=== PATIENT | male | born 1995 | race Caucasian/White ===

== ENCOUNTER 2018-11-15 23:13 | Emergency (ER) | payer MEDICAID, OTHER ==
[~2018-11-15] VITALS: Ht 177.8 cm; Wt 63.5 kg
[2018-11-15 23:27] VITALS: BP_SYST 125; BP_SYST 126; BP_SYST 129; BP_DIAS 80; BP_DIAS 85; BP_DIAS 86
[2018-11-15] MEDS ORDERED: LACTATED RINGERS 1,000 ML IV ONE (23:36)
[2018-11-15 23:45] LABS: BASOPHILS % (AUTO) 0 % (0-10); EOSINOPHILS # (AUTO) 0.1 10^3/uL (0.0-0.3); EOSINOPHILS % (AUTO) 0 % (0-10); HEMATOCRIT 45 % (40-54); HEMOGLOBIN 15.2 G/DL (13.3-17.7); LYMPHOCYTES # (AUTO) 1.6 X 10^3 (1.0-4.0); LYMPHOCYTES % (AUTO) 9 % (12-44); MEAN CORPUSCULAR HEMOGLOBIN 30 PG (25-34); MEAN CORPUSCULAR HGB CONC 34 G/DL (32-36); MEAN CORPUSCULAR VOLUME 88 FL (80-99); MEAN PLATELET VOLUME 9.5 FL (7.4-10.4); MONOCYTES % (AUTO) 6 % (0-12); NEUTROPHILS # (AUTO) 15.3 X 10^3 (1.8-7.8); NEUTROPHILS % (AUTO) 85 % (42-75); PLATELET COUNT 249 10^3/uL (130-400); RED CELL DISTRIBUTION WIDTH 13.9 % (10.0-14.5); WHITE BLOOD COUNT 17.9 10^3/uL (4.3-11.0)
[2018-11-16 00:07] LABS: ALANINE AMINOTRANSFERASE 21 U/L (0-55); ALBUMIN 4.9 GM/DL (3.2-4.5); ALKALINE PHOSPHATASE 80 U/L (40-136); BILIRUBIN,TOTAL 0.4 MG/DL (0.1-1.0); BUN/CREATININE RATIO 12; CARBON DIOXIDE 25 MMOL/L (21-32); CHLORIDE 100 MMOL/L (98-107); CREATINE KINASE 104 U/L (30-200); CREATININE SERUM 1.02 MG/DL (0.60-1.30); GFR ESTIMATED > 60; GLUCOSE 107 MG/DL (70-105); MAGNESIUM 2.2 MG/DL (1.8-2.4); POTASSIUM 3.7 MMOL/L (3.6-5.0); SODIUM 138 MMOL/L (135-145); TOTAL PROTEIN 7.6 GM/DL (6.4-8.2)
[2018-11-16 00:13] LABS: CREATINE KINASE MB 0.7 NG/ML (<6.6)
[2018-11-16 00:39] LABS: BILIRUBIN,URINE NEGATIVE (NEGATIVE); CLARITY,URINE CLEAR; COLOR,URINE YELLOW; GLUCOSE, URINE (UA) NEGATIVE (NEGATIVE); KETONES,URINE NEGATIVE (NEGATIVE); LEUKOCYTE ESTERASE ,URINE NEGATIVE (NEGATIVE); NITRITE,URINE NEGATIVE (NEGATIVE); PH,URINE 6 (5-9); PROTEIN,URINE NEGATIVE (NEGATIVE); UROBILINOGEN,URINE NORMAL (NORMAL)
[2018-11-16 00:51] LABS: AMPHETAMINE SCREEN, URINE NEGATIVE (NEGATIVE); BARBITURATE SCREEN URINE NEGATIVE (NEGATIVE); BENZODIAZEPINES SCREEN URINE NEGATIVE (NEGATIVE); CANNABINOID SCREEN, URINE NEGATIVE (NEGATIVE); COCAINE SCREEN URINE NEGATIVE (NEGATIVE); METHADONE STAT NEGATIVE (NEGATIVE); METHAMPHETAMINE SCREEN URINE S NEGATIVE (NEGATIVE); OPIATE SCREEN URINE NEGATIVE (NEGATIVE); OXYCODONE STAT NEGATIVE (NEGATIVE); PROPOXYPHENE STAT NEGATIVE (NEGATIVE); TRICYCLIC ANTIDEPRESSANTS SCRE NEGATIVE (NEGATIVE)
[2018-11-16 00:52] LABS: BACTERIA,URINE FEW /HPF; RBC,URINE 0-2 /HPF; SQUAMOUS EPITHELIAL CELL,UR RARE /HPF; WBC,URINE RARE /HPF
[2018-11-16 01:11] LABS: LYMPHOCYTES % (MANUAL) 7 %; MONOCYTES % (MANUAL) 6 %; NEUTROPHILS % (MANUAL) 87 %
[2018-11-16] MEDS ORDERED: LACTATED RINGERS 1,000 ML IV ONE (01:12)
[2018-11-16] MEDS ORDERED: ONDANSETRON 4 MG/2 ML (SDV) Z0FRAN IVP ONE (01:15)
[2018-11-16] MEDS ORDERED: ONDA4TAB11 PO (01:34)
--- NOTE | 2018-11-16 01:35 | ED General ---
General Chief Complaint: Exposure Stated Complaint: PASSED OUT AT WORK Nursing Triage Note: syncopal episode at work after vomitting. headache. Nursing Sepsis Screen: No Definite Risk Source of Information: Patient History of Present Illness Date Seen by Provider: Nov 15, 2018 Time Seen by Provider: 23:30 Initial Comments PT ARRIVES VIA POV FROM HOME PT STATES HE WAS AT WORK TONIGHT AT [facility] [employer] AND STARTED FEELING BAD, WENT OUTSIDE AND BEGAN TO VOMIT STATES HE WAS BENT OVER AND VOMITING HARD, AND HE PASSED OUT--WAS NOT WITNESSED, BUT WOKE UP TO CO-WORKERS STANDING BY HIM STATES HE DID NOT INJURE HIMSELF AND DOES NOT THINK HE HIT HIS HEAD STATES THIS OCCURRED AROUND 2100 TONIGHT. STATES [employer]WORKERS STAYED WITH HIM OUTSIDE FOR AN HOUR AND A HALF, AND THEN SENT HIM HOME--PT DROVE HIMSELF HOME PT STATES WHEN HE GOT HOME, HE TOLD HIS MOM WHAT HAPPENED, AND SHE TOLD HIM TO COME HERE PT STATES HE JUST FEELS "WORN OUT" NOW, WITH NO SPECIFIC COMPLAINTS STATES HE WAS WORKING NEAR AN OPEN DOOR AND IT WAS NOT TERRIBLY HOT TONIGHT, BUT HAS BEEN WORKING IN VERY HOT CONDITIONS AT WORK AND ALSO WORKED OUTSIDE ALL WEEKEND. PT STATES THIS HAS HAPPENED BEFORE. Allergies and Home Medications Allergies Coded Allergies: No Known Drug Allergies (Unverified , 11/15/18) Home Medications Ondansetron 4 Mg Tab.rapdis, 4 MG PO Q4H Prescribed by: VAMSHI RODRIGUEZ on 11/16/18 0134 Patient Home Medication List Home Medication List Reviewed: Yes Review of Systems Review of Systems Constitutional: see HPI; No fever; malaise, weakness EENTM: no symptoms reported Respiratory: no symptoms reported; No short of breath Cardiovascular: see HPI; No chest pain, No palpitations; syncope Gastrointestinal: see HPI; No abdominal pain, No diarrhea; nausea, vomiting Genitourinary: no symptoms reported; No decreased output Musculoskeletal: no symptoms reported; No back pain, No neck pain Skin: no symptoms reported Psychiatric/Neurological: See HPI (SYNCOPE); Denies Headache, Denies Numbness, Denies Paresthesia, Denies Seizure, Denies Tingling, Denies Weakness Hematologic/Lymphatic: No Symptoms Reported Immunological/Allergic: no symptoms reported Past Ecllxjq-Wbsyua-Xogery Hx Patient Social History Alcohol Use: Denies Use Recreational Drug Use: No Smoking Status: Current Everyday Smoker Type Used: Cigarettes 2nd Hand Smoke Exposure: Yes Recent Foreign Travel: No Contact w/Someone Who Travel: No Recent Infectious Disease Expo: No Recent Hopitalizations: No Immunizations Up To Date Tetanus Booster (TDap): Unknown Seasonal Allergies Seasonal Allergies: No Past Medical History Surgeries: No Respiratory: No Cardiac: No Neurological: No Genitourinary: No Gastrointestinal: No Musculoskeletal: No Endocrine: No HEENT: No Cancer: No Psychosocial: No Integumentary: No Blood Disorders: No Physical Exam Vital Signs Vital Signs - First Documented 11/15/18 23:27 Temp 97.3 Pulse 85 85 91 Resp 16 B/P (MAP) 125/85 (98) 126/86 (99) 129/80 (96) Pulse Ox 99 O2 Delivery Room Air Capillary Refill : Less Than 3 Seconds Height, Weight, BMI Height: 5'10.00" Weight: 140lbs. oz. 63.243934wk; BMI Method:Stated General Appearance: No Apparent Distress, WD/WN HEENT: PERRL/EOMI, Normal ENT Inspection Neck: Full Range of Motion, Normal Inspection, Non Tender, Supple Respiratory: Normal Breath Sounds, No Accessory Muscle Use, No Respiratory Distress Cardiovascular: Regular Rate, Rhythm, No Edema, No JVD, No Murmur, Normal Peripheral Pulses Gastrointestinal: Normal Bowel Sounds, No Organomegaly, No Pulsatile Mass, Soft, Tenderness (MILD EPIGASTRIC TENDERNESS) Back: Normal Inspection Extremity: Normal Inspection Neurologic/Psychiatric: Alert, Oriented x3, No Motor/Sensory Deficits, Normal Mood/Affect, 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 Norm as Tested; No Abnormal Cerebellar Tests Skin: Normal Color, Warm/Dry Progress/Results/Core Measures Suspected Sepsis Recent Fever Within 48 Hours: No Infection Criteria Present: None New/Unexplained Altered Menta: No Sepsis Screen: No Definite Risk SIRS Temperature:97.3 Pulse: 85 Respiratory Rate: 16 Laboratory Tests 11/15/18 23:35: White Blood Count 17.9H Blood Pressure 125 /85 Mean: 98 Laboratory Tests 11/15/18 23:35: Creatinine 1.02, Platelet Count 249, Total Bilirubin 0.4 Results/Orders Lab Results Laboratory Tests Test 11/15/18 23:35 11/16/18 00:35 Range/Units White Blood Count 17.9 H 4.3-11.0 10^3/uL Red Blood Count 5.10 4.35-5.85 10^6/uL Hemoglobin 15.2 13.3-17.7 G/DL Hematocrit 45 40-54 % Mean Corpuscular Volume 88 80-99 FL Mean Corpuscular Hemoglobin 30 25-34 PG Mean Corpuscular Hemoglobin Concent 34 32-36 G/DL Red Cell Distribution Width 13.9 10.0-14.5 % Platelet Count 249 130-400 10^3/uL Mean Platelet Volume 9.5 7.4-10.4 FL Neutrophils (%) (Auto) 85 H 42-75 % Lymphocytes (%) (Auto) 9 L 12-44 % Monocytes (%) (Auto) 6 0-12 % Eosinophils (%) (Auto) 0 0-10 % Basophils (%) (Auto) 0 0-10 % Neutrophils # (Auto) 15.3 H 1.8-7.8 X 10^3 Lymphocytes # (Auto) 1.6 1.0-4.0 X 10^3 Monocytes # (Auto) 1.0 0.0-1.0 X 10^3 Eosinophils # (Auto) 0.1 0.0-0.3 10^3/uL Basophils # (Auto) 0.0 0.0-0.1 10^3/uL Neutrophils % (Manual) 87 % Lymphocytes % (Manual) 7 % Monocytes % (Manual) 6 % Sodium Level 138 135-145 MMOL/L Potassium Level 3.7 3.6-5.0 MMOL/L Chloride Level 100 98-107 MMOL/L Carbon Dioxide Level 25 21-32 MMOL/L Anion Gap 13 5-14 MMOL/L Blood Urea Nitrogen 12 7-18 MG/DL Creatinine 1.02 0.60-1.30 MG/DL Estimat Glomerular Filtration Rate > 60 BUN/Creatinine Ratio 12 Glucose Level 107 H 70-105 MG/DL Calcium Level 10.0 8.5-10.1 MG/DL Corrected Calcium 8.5-10.1 MG/DL Magnesium Level 2.2 1.8-2.4 MG/DL Total Bilirubin 0.4 0.1-1.0 MG/DL Aspartate Amino Transf (AST/SGOT) 18 5-34 U/L Alanine Aminotransferase (ALT/SGPT) 21 0-55 U/L Alkaline Phosphatase 80 40-136 U/L Total Creatine Kinase 104 30-200 U/L Creatine Kinase MB 0.7 <6.6 NG/ML Troponin I < 0.028 <0.028 NG/ML Total Protein 7.6 6.4-8.2 GM/DL Albumin 4.9 H 3.2-4.5 GM/DL Serum Alcohol < 10 <10 MG/DL Urine Color YELLOW Urine Clarity CLEAR Urine pH 6 5-9 Urine Specific [place] 1.015 L 1.016-1.022 Urine Protein NEGATIVE NEGATIVE Urine Glucose (UA) NEGATIVE NEGATIVE Urine Ketones NEGATIVE NEGATIVE Urine Nitrite NEGATIVE NEGATIVE Urine Bilirubin NEGATIVE NEGATIVE Urine Urobilinogen NORMAL NORMAL MG/DL Urine Leukocyte Esterase NEGATIVE NEGATIVE Urine RBC (Auto) 1+ H NEGATIVE Urine RBC 0-2 /HPF Urine WBC RARE /HPF Urine Squamous Epithelial Cells RARE /HPF Urine Crystals NONE /LPF Urine Bacteria FEW H /HPF Urine Casts NONE /LPF Urine Mucus SMALL H /LPF Urine Culture Indicated NO Urine Opiates Screen NEGATIVE NEGATIVE Urine Oxycodone Screen NEGATIVE NEGATIVE Urine Methadone Screen NEGATIVE NEGATIVE Urine Propoxyphene Screen NEGATIVE NEGATIVE Urine Barbiturates Screen NEGATIVE NEGATIVE Ur Tricyclic Antidepressants Screen NEGATIVE NEGATIVE Urine Phencyclidine Screen NEGATIVE NEGATIVE Urine Amphetamines Screen NEGATIVE NEGATIVE Urine Methamphetamines Screen NEGATIVE NEGATIVE Urine Benzodiazepines Screen NEGATIVE NEGATIVE Urine Cocaine Screen NEGATIVE NEGATIVE Urine Cannabinoids Screen NEGATIVE NEGATIVE My Orders Orders - VAMSHI RODRIGUEZ DO Ed Iv/Invasive Line Start (11/15/18 23:36) Ekg Tracing (11/15/18 23:36) Monitor-Rhythm Ecg Trace Only (11/15/18 23:36) Orthostatic Vital Signs (Adult (11/15/18 23:36) Alcohol (11/15/18 23:36) Cbc With Automated Diff (11/15/18 23:36) Comprehensive Metabolic Panel (11/15/18 23:36) Creatine Kinase (11/15/18 23:36) Creatine Kinase Mb (11/15/18 23:36) Drug Screen Stat (Urine) (11/15/18 23:36) Magnesium (11/15/18 23:36) Ua Culture If Indicated (11/15/18 23:36) Troponin I (11/15/18 23:36) Ed Iv/Invasive Line Start (11/15/18 23:36) Ed Iv/Invasive Line Start (11/15/18 23:36) Lactated Ringers (Lr 1000 Ml Iv Solution (11/15/18 23:36) Manual Differential (11/15/18 23:35) Ed Iv/Invasive Line Start (11/16/18 01:12) Ondansetron Injection (Zofran Injectio (11/16/18 01:15) Lactated Ringers (Lr 1000 Ml Iv Solution (11/16/18 01:12) Medications Given in ED Current Medications Medications Dose Ordered Sig/Juan Route Start Time Stop Time Status Last Admin Dose Admin Lactated Ringer's 1,000 ml @ 0 mls/hr Q0M ONCE IV 11/15/18 23:36 11/15/18 23:38 DC 11/15/18 23:50 0 MLS/HR Lactated Ringer's 1,000 ml @ 0 mls/hr Q0M ONCE IV 11/16/18 01:12 11/16/18 01:13 DC 11/16/18 01:30 0 MLS/HR Ondansetron HCl 4 mg ONCE ONCE IVP 11/16/18 01:15 11/16/18 01:16 DC 11/16/18 01:30 4 MG Vital Signs/I&O 11/15/18 11/15/18 11/16/18 23:27 23:27 01:50 Temp 97.3 97.8 Pulse 85 85 73 85 91 Resp 16 16 B/P (MAP) 125/85 (98) 125/85 (98) 125/77 (93) 126/86 (99) 129/80 (96) Pulse Ox 99 100 O2 Delivery Room Air Room Air Capillary Refill : Less Than 3 Seconds Blood Pressure Mean: 98 Progress Note : Progress Note UNEVENTFUL ER STAY, SLEPT FOR MOST OF STAY NO COMPLAINTS DURING ENTIRE ER STAY ECG Initial ECG Impression Date: Nov 15, 2018 Initial ECG Impression Time: 23:42 Initial ECG Rate: 70 Initial ECG Rhythm: Normal Sinus Departure Impression Primary Impression: SELF REPORTED SYNCOPAL EPISODE Additional Impressions: Nausea & vomiting POSSIBLE VASOVAGAL SYNCOPE POSSIBLE HEAT EXHAUSTION Disposition: 01 HOME, SELF-CARE Condition: Improved Departure-Patient Inst. Patient Instructions: Heat Exhaustion and Heat Stroke (DC), Nausea and Vomiting, Adult (DC), Syncope (Fainting) (DC), Vasovagal Response (DC) Add. Discharge Instructions: LOTS OF CLEAR LIQUIDS--WATER, BROTH, JELLO, GATORADE--DRINK ENOUGH SO YOU ARE URINATING EVERY 2-3 HOURS WHILE AWAKE TOMORROW IF YOU ARE BETTER, ADD BRATS DIET TO CLEAR LIQUIDS--BANANAS, RICE, APPLESAUCE, TOAST, SALTINES FOLLOW UP WITH YOUR DR TOMORROW IF NO BETTER, RETURN TO ER IF WORSE All discharge instructions reviewed with patient and/or family. Voiced understanding. Scripts Ondansetron (Ondansetron Odt) 4 Mg Tab.rapdis 4 MG PO Q4H for Nausea/Vomiting, #10 TAB Prov: VAMSHI RODRIGUEZ DO 11/16/18 Work/School Note: Work Release Form Date Seen in the Emergency Department: Nov 15, 2018 Return to Work: Nov 17, 2018 Restrictions: No Restrictions VAMSHI RODRIGUEZ DO Nov 16, 2018 01:34
[2018-11-16 01:50] VITALS: BP 125/77
== END 2018-11-16 01:54 | disposition home or self-care (01) ==
LOC: ER 23:16
DX: R55 Syncope and collapse (principal); R11.2 Nausea with vomiting, unspecified; F17.210 Nicotine dependence, cigarettes, uncomplicated
CPT/HCPCS: 36415; 80053; 80306; 80320; 81000; 82550; 82553; 83735; 84484; 85007; 85027; 93005; 93041; 96361; 96374

== ENCOUNTER 2019-02-08 18:09 | Emergency (ER) | payer MEDICAID ==
[~2019-02-08] VITALS: Ht 180.3 cm; Wt 69.1 kg
[~2019-02-08 18:09] MED LIST: ONDA4TAB11 PO
--- NOTE | 2019-02-08 18:28 | ED Integumentary General ---
General Chief Complaint: Skin/Wound Problems Stated Complaint: RASH ALL OVER Source: patient Exam Limitations: no limitations History of Present Illness Date Seen by Provider: Feb 08, 2019 Time Seen by Provider: 18:26 Initial Comments To ER with reports of a rash all over starting today not really itchy. He's had a sore throat for the past 3 days but no fevers or chills. He's had a nonproductive cough for the past month. Timing/Duration: constant Severity: moderate Location: none Associated Symptoms: rash Allergies and Home Medications Allergies Coded Allergies: No Known Drug Allergies (Unverified , 11/15/18) Patient Home Medication List Home Medication List Reviewed: Yes Review of Systems Review of Systems Constitutional: see HPI; No chills, No fever EENTM: see HPI Respiratory: see HPI, cough Cardiovascular: no symptoms reported Musculoskeletal: no symptoms reported Skin: see HPI, rash Psychiatric/Neurological: No Symptoms Reported Endocrine: No Symptoms Reported Hematologic/Lymphatic: No Symptoms Reported Past Brmmdqd-Qvskfp-Wgbqfs Hx Patient Social History Type Used: Cigarettes 2nd Hand Smoke Exposure: Yes Recent Foreign Travel: No Contact w/Someone Who Travel: No Recent Hopitalizations: No Immunizations Up To Date Tetanus Booster (TDap): Unknown Seasonal Allergies Seasonal Allergies: No Past Medical History Surgeries: No Respiratory: No Cardiac: No Neurological: No Genitourinary: No Gastrointestinal: No Musculoskeletal: No Endocrine: No HEENT: No Cancer: No Psychosocial: No Integumentary: No Blood Disorders: No Physical Exam Vital Signs Vital Signs - First Documented 02/08/19 18:13 Temp 36.7 Pulse 92 Resp 18 B/P (MAP) 128/90 (103) Pulse Ox 98 Capillary Refill : General Appearance: WD/WN, no apparent distress HEENT: PERRL/EOMI, normal ENT inspection Respiratory: no respiratory distress, no accessory muscle use Extremities: normal range of motion, non-tender Neurologic/Psychiatric: alert, normal mood/affect, oriented x 3 Skin: normal color, warm/dry, rash Skin Problem Character: other (sandpaperlike rash to torso) Progress/Results/Core Measures Results/Orders Lab Results Laboratory Tests Test 02/08/19 18:25 Range/Units Group A Streptococcus Screen NEGATIVE NEGATIVE My Orders Orders - KASSANDRA BARRON APRN Rapid Strep A Screen (02/08/19 18:29) Chest Pa/Lat (2 View) (02/08/19 18:29) Vital Signs/I&O 02/08/19 18:13 Temp 36.7 Pulse 92 Resp 18 B/P (MAP) 128/90 (103) Pulse Ox 98 Departure Impression Primary Impression: Sore throat Additional Impressions: Rash and nonspecific skin eruption Bronchitis Disposition: HOME, SELF-CARE Condition: Stable Departure-Patient Inst. Decision time for Depature: 18:59 Referrals: NO,LOCAL PHYSICIAN (PCP/Family) Primary Care Physician Patient Instructions: Skin Rash, Acute Bronchitis Add. Discharge Instructions: 1. Return to ER for any concerns 2. Follow-up with your doctor next week 3. Steroids and antibiotics as directed. All discharge instructions reviewed with patient and/or family. Voiced understanding. Scripts Azithromycin (Azithromycin) 250 Mg Tablet 250 MG PO UD, #6 TAB TAKE 2 TABLETS ON DAY ONE THEN TAKE 1 TABLET DAILY FOR FOUR MORE DAYS Prov: KASSANDRA BARRON APRN 02/08/19 Prednisone (Prednisone) 20 Mg Tab 40 MG PO DAILY, #8 TAB 0 Refills Prov: KASSANDRA BARRON APRN 02/08/19 KASSANDRA BARRON APRN Feb 08, 2019 18:28
--- NOTE | 2019-02-08 18:54 | NUR ---
REPORT TO SHYANN
--- NOTE | 2019-02-08 18:57 | Diagnostic Imaging Report ---
INDICATION: Cough COMPARISON: None. FINDINGS: Frontal and lateral views the chest demonstrate clear lungs bilaterally. The heart size is normal. There is no pneumothorax. Osseous structures are normal. IMPRESSION: No acute findings. Normal chest. Dictated by: Dictated on workstation # [id number]
[2019-02-08] MEDS ORDERED: AZIT250T12 PO (19:00)
[2019-02-08] MEDS ORDERED: PRD20T PO (19:00)
[2019-02-08 19:06] VITALS: BP 128/90
== END 2019-02-08 19:06 | disposition home or self-care (01) ==
LOC: EDUNIT# 18:09 → ER 18:10
DX: J02.9 Acute pharyngitis, unspecified (principal); J40 Bronchitis, not specified as acute or chronic; R21 Rash and other nonspecific skin eruption; Z77.22 Contact with and (suspected) exposure to environmental tobacco smoke (acute) (chronic)
CPT/HCPCS: 71046; 87430

== ENCOUNTER 2019-07-24 21:35 | Emergency (ER) | payer MEDICAID ==
[~2019-07-24] VITALS: Ht 177 cm; Wt 69.1 kg
[~2019-07-24 21:35] MED LIST changes: +AZIT250T12 PO; +PRD20T PO
--- OUTSIDE RECORDS SUMMARY | 2019-07-24 21:40 | XMS REPORT | Continuity of Care Document ---
Author Organization Unknown Address Unknown Phone Unavailable Allergies Active Description Code Type Severity Reaction Onset Reported/Identified Relationship to Patient Clinical Status Yes No Known Drug Allergies [id number] Drug Allergy Unknown N/A 11/15/2018 Medications There is no data. Problems Date Dx Coded Attending Type Code Diagnosis Diagnosed By 11/16/2018 JENNIFER DO VAMSHI K Ot F17.210 NICOTINE DEPENDENCE, CIGARETTES, UNCOMPL 11/16/2018 JENNIFER DO, VAMSHI K Ot R11.2 NAUSEA WITH VOMITING, UNSPECIFIED 11/16/2018 JENNIFER DO, VAMSHI K Ot R55 SYNCOPE AND COLLAPSE 11/22/2018 JENNIFER DO, VAMSHI K Ot F17.210 NICOTINE DEPENDENCE, CIGARETTES, UNCOMPL 11/22/2018 JENNIFER DO, VAMSHI K Ot R11.2 NAUSEA WITH VOMITING, UNSPECIFIED 11/22/2018 JENNIFER DO, VAMSHI K Ot R55 SYNCOPE AND COLLAPSE 02/13/2019 KASSANDRA BARRON APRN Ot J02 .9 ACUTE PHARYNGITIS, UNSPECIFIED 02/13/2019 KASSANDRA BARRON APRN Ot J40 BRONCHITIS, NOT SPECIFIED ACUTE OR CH 02/13/2019 KASSANDRA BARRON APRN Ot R21 RASH AND OTHER NONSPECIFIC SKIN ERUPTION 02/13/2019 KASSANDRA BARRON APRN Ot Z77.22 CNTCT W AND EXPSR TO ENVIRON TOBACCO SMO Procedures There is no data. Results Test Result Range Complete blood count (CBC) with automate d white blood cell (WBC) differential - 11/15/18 23:35 Blood leukocytes automated count (number/volume) 17.9 10*3/uL 4.3-11.0 Blood erythrocytes automated count (number/volume) 5.10 10*6/uL 4.35-5.85 Venous blood hemoglobin measurement (mass/volume) 15.2 g/dL 13.3-17.7 Blood hematocrit (volume fraction) 45 % 40-54 Automated erythrocyte mean corpuscular volume 88 [ foz_us] 80-99 Automated erythrocyte mean corpuscular h emoglobin (mass per erythrocyte) 30 pg 25-34 Automated erythrocyte mean corpuscular h emoglobin concentration measurement (mass/volume) 34 g/dL 32-36 Automated erythrocyte distribution width ratio 13. 9 % 10.0- 14.5 Automated blood platelet count (count/volume) 249 10*3/uL 130-400 Automated blood platelet mean volume measurement 9.5 [foz_us] 7.4-10.4 Automated blood neutrophils/100 leukocytes 85 % 42-75 Automated blood lymphocytes/100 leukocytes 9 % 12-44 Blood monocytes/100 leukocytes 6 % 0-12 Automated blood eosinophils/100 leukocytes 0 % 0-10 Automated blood basophils/100 leukocytes 0 % 0-10 Blood neutrophils automated count (number/volume) 15.3 10*3 1.8-7.8 Blood lymphocytes automated count (number/volume) 1.6 10*3 1.0-4.0 Blood monocytes automated count (number/volume) 1. 0 10*3 0.0-1.0 Automated eosinophil count 0.1 10*3/uL 0 .0-0.3 Automated blood basophil count (count/volume) 0.0 10*3/uL 0.0-0.1 Comprehensive metabolic panel - 11/15/18 23:35 Serum or plasma sodium measurement (moles/volume) 138 mmol/L 135-145 Serum or plasma potassium measurement (moles/volume) 3.7 mmol/L 3.6-5.0 Serum or plasma chloride measurement (moles/volume) 100 mmol/L 98-107 Carbon dioxide 25 mmol/L 21-32 Serum or plasma anion gap determination (moles/volume) 13 mmol/L 5-14 Serum or plasma urea nitrogen measurement (mass/volume ) 12 mg/dL 7-18 Serum or plasma creatinine measurement (mass/volume) 1.02 mg/dL 0.60-1.30 Serum or plasma urea nitrogen/creatinine mass ratio 12 NRG Serum or plasma creatinine measurement w ith calculation of estimated glomerular filtration rate > NRG Serum or plasma glucose measurement (mass/volume) 107 mg/dL 70-105 Serum or plasma calcium measurement (mass/volume) 10.0 mg/dL 8.5-10.1 Serum or plasma total bilirubin measurement (mass/volu me) 0.4 mg/dL 0.1-1.0 Serum or plasma alkaline phosphatase tai surement (enzymatic activity/volume) 80 U/L 40-136 Serum or plasma aspartate aminotransfera se measurement (enzymatic activity/volume) 18 U/L 5-34 Serum or plasma alanine aminotransferase measurement (enzymatic activity/volume) 21 U/L 0-55 Serum or plasma protein measurement (mass/volume) 7.6 g/dL 6.4-8.2 Serum or plasma albumin measurement (mass/volume) 4.9 g/dL 3.2-4.5 Magnesium - 11/15/18 23:35 Magnesium 2.2 mg/dL 1.8-2.4 Serum or plasma creatine kinase measurem ent (enzymatic activity/volume) - 11/15/18 23:35 Serum or plasma creatine kinase measurem ent (enzymatic activity/volume) 104 U/L 30-200 Serum or plasma creatine kinase MB measu rement (enzymatic activity/volume) - 11/15/18 23:35 Serum or plasma creatine kinase MB measu rement (enzymatic activity/volume) 0.7 ng/mL <6.6 Serum or plasma troponin i.cardiac measu rement (mass/volume) - 11/15/18 23:35 Serum or plasma troponin i.cardiac measurement (mass/v olume) < ng/mL <0.028 Serum or plasma ethanol measurement (mas s/volume) - 11/15/18 23:35 Serum or plasma ethanol measurement (mass/volume) < mg/dL <10 Manual absolute plasma cell count - 10/25 07/12 23:35 Blood monocytes/100 leukocytes 6 % NRG Manual blood segmented neutrophils/100 leukocytes 87 % NRG Manual blood lymphocytes/100 leukocytes 7 % NRG Urine drug screening test - 11/16/18 00: 35 Urine phencyclidine detection by screening method NEGATIVE NEGATIVE Urine benzodiazepines detection by screening method NEGATIVE NEGATIVE Urine cocaine detection NEGATIVE NEGATI VE Urine amphetamines detection by screening method N EGATIVE NEGATIVE Urine methamphetamine detection by screening method NEGATIVE NEGATIVE Urine cannabinoids detection by screening method N EGATIVE NEGATIVE Urine opiates detection by screening method NEGATI VE NEGATIVE Urine barbiturates detection NEGATIVE N EGATIVE Screening urine tricyclic antidepressants detection NEGATIVE NEGATIVE Urine methadone detection by screening method NEGA TIVE NEGATIVE Urine oxycodone detection NEGATIVE NEGA TIVE Urine propoxyphene detection NEGATIVE N EGATIVE Complete urinalysis with reflex to cultu re - 07/24/19 00:35 Urine color determination YELLOW NRG Urine clarity determination CLEAR NR G Urine pH measurement by test strip 6 5-9 Specific gravity of urine by test strip 1.015 1.016-1.022 Urine protein assay by test strip, semi-quantitative NEGATIVE NEGATIVE Urine glucose detection by automated test strip NE GATIVE NEGATIVE Erythrocytes detection in urine sediment by light micr oscopy 1+ NEGATIVE Urine ketones detection by automated test strip NE GATIVE NEGATIVE Urine nitrite detection by test strip NEGATIVE NEGATIVE Urine total bilirubin detection by test strip NEGA TIVE NEGATIVE Urine urobilinogen measurement by automated test strip (mass/volume) NORMAL NORMAL Urine leukocyte esterase detection by dipstick NEG ATIVE NEGATIVE Automated urine sediment erythrocyte cou nt by microscopy (number/high power field) [HPF] NRG Automated urine sediment leukocyte count by microscopy (number/high power field) RARE NRG Bacteria detection in urine sediment by light microsco py FEW NRG Squamous epithelial cells detection in u rine sediment by light microscopy RARE NRG Crystals detection in urine sediment by light microsco py NONE NRG Casts detection in urine sediment by light microscopy NONE NRG Mucus detection in urine sediment by light microscopy SMALL NRG Complete urinalysis with reflex to culture NO NRG Streptococcus pyogenes antigen detection - 02/08/19 18:25 Streptococcus pyogenes antigen detection NEGATIVE NEGATIVE Bacterial throat culture - 02/08/19 18:2 5 Bacterial throat culture NBS NRG Encounters ACCT No. Visit Date/Time Discharge Status Pt. Type Provider Facility Loc./Unit Complaint [id number] 02/08/2019 18:10:00 19:06:00 DIS Outpatient KASSANDRA BARRON [employer] [facility] ER RASH ALL OVER [id number] 11/15/2018 23:16:00 01:54:00 DIS Emergency JENNIFER DOVAMSHI a [facility] ER PASSED OUT
[2019-07-24] MEDS ORDERED: NS IV 1000 ML 1,000 ML ONE (21:54)
[2019-07-24] MEDS ORDERED: NS IV 1000 ML 1,000 ML IV SCH (22:15)
[2019-07-24 22:16] LABS: BASOPHILS % (AUTO) 0 % (0-10); EOSINOPHILS # (AUTO) 0.1 10^3/uL (0.0-0.3); EOSINOPHILS % (AUTO) 1 % (0-10); HEMATOCRIT 46 % (40-54); LYMPHOCYTES # (AUTO) 2.1 X 10^3 (1.0-4.0); LYMPHOCYTES % (AUTO) 19 % (12-44); MEAN CORPUSCULAR HEMOGLOBIN 31 PG (25-34); MEAN CORPUSCULAR HGB CONC 35 G/DL (32-36); MEAN CORPUSCULAR VOLUME 89 FL (80-99); MEAN PLATELET VOLUME 10.1 FL (7.4-10.4); MONOCYTES # (AUTO) 0.8 X 10^3 (0.0-1.0); MONOCYTES % (AUTO) 7 % (0-12); NEUTROPHILS % (AUTO) 73 % (42-75); PLATELET COUNT 263 10^3/uL (130-400); RED CELL DISTRIBUTION WIDTH 13.3 % (10.0-14.5)
[2019-07-24 22:33] LABS: ALANINE AMINOTRANSFERASE 21 U/L (0-55); ALBUMIN 4.7 GM/DL (3.2-4.5); ALKALINE PHOSPHATASE 101 U/L (40-136); BILIRUBIN,TOTAL 0.4 MG/DL (0.1-1.0); BUN/CREATININE RATIO 10; CALCIUM 9.5 MG/DL (8.5-10.1); CARBON DIOXIDE 25 MMOL/L (21-32); CHLORIDE 103 MMOL/L (98-107); CREATININE SERUM 1.15 MG/DL (0.60-1.30); GFR ESTIMATED > 60; GLUCOSE 102 MG/DL (70-105); MAGNESIUM 2.1 MG/DL (1.6-2.4); POTASSIUM 3.7 MMOL/L (3.6-5.0); SODIUM 140 MMOL/L (135-145); TOTAL PROTEIN 7.7 GM/DL (6.4-8.2)
[2019-07-24 22:36] LABS: ERYTHROCYTE SEDIMENTATION RATE 4 MM/HR (0-15)
--- NOTE | 2019-07-24 22:37 | ED Cough/URI ---
General Chief Complaint: Cough/Cold/Flu Symptoms Stated Complaint: SOB,COUGH Nursing Triage Note: PT PRESENTS TO THE ED C/O SOB AND COUGH THAT HAS PERSISTED FOR ONE MONTH. PT STATES OVER THE LAST WEEK HIS SYMPTOMS HAVE WORSENED, DENIES KNOWN EXPOSURE TO POSSIBLE COVID. Sepsis Screen: Possible Severe Sepsis Risk Source: patient History of Present Illness Date Seen by Provider: Jul 24, 2019 Time Seen by Provider: 22:10 Initial Comments PT ARRIVES VIA POV FROM HOME STATES THAT HE HAS BEEN SICK FOR A MONTH WITH NON-PRODUCTIVE COUGH C/O HEADACHES FOR A WEEK OR TWO STATES "IT'S HARD TO BREATHE-LIKE SOMEONE SITTING ON MY CHEST" --WORSE WITH LAYING DOWN OR WITH EXERTION-STATES "IT FEELS LIKE I'VE BEEN RUNNING" --ALSO ONGOING FOR A MONTH NO FEVER AT ANY GARTH NO CHEST PAIN NO SWELLING IN LEGS/ FEET NO DIZZINESS OR SYNCOPE NO PALPITATIONS. NO SORE THROAT NO NASAL CONGESTION OR DRAINAGE NO BODY ACHES NO GI SYMPTOMS HAS NOT SOUGHT CARE UNTIL TONIGHT SYMPTOMS NO DIFFERENT IN ANY WAY HAS NOT TAKEN ANYTHING FOR SYMPTOMS OTHER THAN A COUPLE OF IBUPROFEN OVER THE LAST COUPLE OF WEEKS STATES HIS 2 DAUGHTERS TESTED + FOR INFLUENZA B A COUPLE OF WEEKS AGO OTHERWISE NO KNOWN SICK CONTACTS NO KNOWN EXPOSURE TO COVID- PT HAS NOT STAYED HOME, AND HAS CONTINUED NORMAL ACTIVITIES, DESPITE THE COVID PANDEMIC--STATES "I BEEN [facility] [employer] [facility] TIMES[facility] [employer] STATES HE WORKED LAST WEDNESDAY--WORKS AT "[employer]" --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[employer] STATES HE WAS SUPPOSED TO GO TO WORK TONIGHT, BUT DID NOT--STATES "I JUST DON'T FEEL SAFE GOING TO WORK" NO HISTORY OF RESPIRATORY PROBLEMS PT SMOKES 1 PPD PCP: [facility] Allergies and Home Medications Allergies Coded Allergies: No Known Drug Allergies (Unverified , 11/15/18) Home Medications Azithromycin 250 Mg Tablet, 250 MG PO UD TAKE 2 TABLETS ON DAY ONE THEN TAKE 1 TABLET DAILY FOR FOUR MORE DAYS Prescribed by: KASSANDRA BARRON on 02/08/191899 Prednisone 20 Mg Tab, 40 MG PO DAILY Prescribed by: KASSANDRA BARRON on 02/08/191899 Patient Home Medication List Home Medication List Reviewed: Yes Review of Systems Review of Systems Constitutional: no symptoms reported; No chills, No diaphoresis, No dizziness, No fever, No malaise, No weakness EENTM: no symptoms reported; No ear pain, No nose congestion, No throat pain Respiratory: see HPI, cough, dyspnea on exertion; No phlegm, No wheezing Cardiovascular: no symptoms reported; No chest pain, No edema, No palpitations, No syncope, No vascular heart diseas Gastrointestinal: no symptoms reported Genitourinary: no symptoms reported Musculoskeletal: no symptoms reported; No back pain Skin: no symptoms reported Psychiatric/Neurological: No Symptoms Reported Hematologic/Lymphatic: No Symptoms Reported Immunological/Allergic: no symptoms reported Past Dkrnzxh-Wlhmpu-Ddgodp Hx Past Med/Social Hx: Reviewed and Corrections made Patient Social History Alcohol Use: Occasionally Uses Recreational Drug Use: No Smoking Status: Current Everyday Smoker (1 PPD) Type Used: Cigarettes (1 PPD) 2nd Hand Smoke Exposure: Yes Recent Foreign Travel: No Contact w/Someone Who Travel: No Recent Infectious Disease Expo: No Recent Hopitalizations: No Physical Abuse: No Sexual Abuse: No Mistreated: No Fear: No Immunizations Up To Date Tetanus Booster (TDap): Unknown Seasonal Allergies Seasonal Allergies: No Past Medical History Surgeries: No Respiratory: No Cardiac: No Neurological: No Genitourinary: No Gastrointestinal: No Musculoskeletal: No Endocrine: No HEENT: No Cancer: No Psychosocial: No Integumentary: No Blood Disorders: No Physical Exam Vital Signs - First Documented 07/24/19 21:50 Temp 37.1 Pulse 116 Resp 22 B/P (MAP) 150/89 (109) Pulse Ox 100 O2 Delivery Room Air Capillary Refill : Less Than 3 Seconds Height: 5'10.00" Weight: 140lbs. oz. 63.615626do; 22.00 BMI Method:Stated General Appearance: WD/WN, no apparent distress, other (NO COUGH OR DYSPNEA AT ANY TIME. DOES NOT APPEAR ILL IN ANY WAY. O2 SATS 998-100% ON ROOM AIR. 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 nml as tested, no motor/sensory deficits, alert, normal mood/affect, oriented x 3 Skin: normal color, warm/dry Progress/Results/Core Measures Suspected Sepsis Recent Fever Within 48 Hours: Yes Infection Criteria Present: Suspected New Infection New/Unexplained Altered Menta: No Sepsis Screen: Possible Severe Sepsis Risk SIRS Temperature: Pulse: 116 Respiratory Rate: 22 Laboratory Tests 07/24/19 21:55: White Blood Count 11.0 Blood Pressure 150 /89 Mean: 109 Laboratory Tests 07/24/19 21:55: Creatinine 1.15, Platelet Count 263, Total Bilirubin 0.4 Results/Orders Lab Results Laboratory Tests Test 07/24/19 21:54 07/24/19 21:55 Range/Units Group A Streptococcus Screen NEGATIVE NEGATIVE White Blood Count 11.0 4.3-11.0 10^3/uL Red Blood Count 5.17 4.35-5.85 10^6/uL Hemoglobin 16.0 13.3-17.7 G/DL Hematocrit 46 40-54 % Mean Corpuscular Volume 89 80-99 FL Mean Corpuscular Hemoglobin 31 25-34 PG Mean Corpuscular Hemoglobin Concent 35 32-36 G/DL Red Cell Distribution Width 13.3 10.0-14.5 % Platelet Count 263 130-400 10^3/uL Mean Platelet Volume 10.1 7.4-10.4 FL Neutrophils (%) (Auto) 73 42-75 % Lymphocytes (%) (Auto) 19 12-44 % Monocytes (%) (Auto) 7 0-12 % Eosinophils (%) (Auto) 1 0-10 % Basophils (%) (Auto) 0 0-10 % Neutrophils # (Auto) 8.0 H 1.8-7.8 X 10^3 Lymphocytes # (Auto) 2.1 1.0-4.0 X 10^3 Monocytes # (Auto) 0.8 0.0-1.0 X 10^3 Eosinophils # (Auto) 0.1 0.0-0.3 10^3/uL Basophils # (Auto) 0.0 0.0-0.1 10^3/uL Erythrocyte Sedimentation Rate 4 0-15 MM/HR D-Dimer 0.35 0.00-0.49 UG/ML Sodium Level 140 135-145 MMOL/L Potassium Level 3.7 3.6-5.0 MMOL/L Chloride Level 103 98-107 MMOL/L Carbon Dioxide Level 25 21-32 MMOL/L Anion Gap 12 5-14 MMOL/L Blood Urea Nitrogen 12 7-18 MG/DL Creatinine 1.15 0.60-1.30 MG/DL Estimat Glomerular Filtration Rate > 60 BUN/Creatinine Ratio 10 Glucose Level 102 70-105 MG/DL Calcium Level 9.5 8.5-10.1 MG/DL Corrected Calcium 8.5-10.1 MG/DL Magnesium Level 2.1 1.6-2.4 MG/DL Total Bilirubin 0.4 0.1-1.0 MG/DL Aspartate Amino Transf (AST/SGOT) 17 5-34 U/L Alanine Aminotransferase (ALT/SGPT) 21 0-55 U/L Alkaline Phosphatase 101 40-136 U/L Lactate Dehydrogenase 205 125-220 U/L C-Reactive Protein High Sensitivity 0.68 H 0.00-0.50 MG/DL Total Protein 7.7 6.4-8.2 GM/DL Albumin 4.7 H 3.2-4.5 GM/DL Procalcitonin 0.05 <0.10 NG/ML Monoscreen NEGATIVE NEGATIVE Micro Results Microbiology 07/24/19 Influenza Types A,B Antigen (DERRICK) - Final, Complete My Orders Orders - VAMSHI RODRIGUEZ DO Ns Iv 1000 Ml (Sodium Chloride 0.9%) (07/24/19 21:54) Ns Iv 1000 Ml (Sodium Chloride 0.9%) (07/24/19 22:15) Ed Iv/Invasive Line Start (07/24/19 22:05) Monitor-Rhythm Ecg Trace Only (07/24/19 22:05) Cbc With Automated Diff (07/24/19 22:05) Comprehensive Metabolic Panel (07/24/19 22:05) Magnesium (07/24/19 22:05) Monotest (07/24/19 22:05) Rapid Strep A Screen (07/24/19 22:05) Influenza A And B Antigens (07/24/19 22:05) Chest 1 View, Ap/Pa Only (07/24/19 22:05) Ferritin (07/24/19 22:05) Fibrin Degradation Products (07/24/19 22:05) Procalcitonin (Pct) (07/24/19 22:05) Hs C Reactive Protein (07/24/19 22:05) Erythrocyte Sedimentation Rate (07/24/19 22:05) LDH (07/24/19 22:05) Ed Iv/Invasive Line Start (07/24/19 22:05) Vital Signs/I&O 07/24/19 07/24/19 21:50 23:00 Temp 37.1 37.0 Pulse 116 75 Resp 22 18 B/P (MAP) 150/89 (109) 137/74 (109) Pulse Ox 100 98 O2 Delivery Room Air Room Air 07/25/19 00:00 Intake Total 1000 ml Balance 1000 ml Capillary Refill : Less Than 3 Seconds Blood Pressure Mean: 109 Progress Note : Progress Note COMPLETELY ASYMPTOMATIC DURING ENTIRE ER STAY NO COUGH OR DYSPNEA OR HYPOXIA AT ANY TIME NO FEVER AT ANY TIME PT DOES NOT MEET CURRENT CRITERIA FOR COVID-19 TESTING, NO FEVER, NO RESPIRATORY DISTRESS ( WITH NO OBSERVED COUGH OR DYSPNEA NOTED AY ANY TIME DURING ER STAY ) Diagnostic Imaging Comments CXR--NO ACUTE PROCESS, PENDING RADIOLOGIST REVIEW Reviewed: Reviewed by Me Departure Impression Primary Impression: SUBJECTIVE DYSPNEA Disposition: 01 HOME, SELF-CARE Condition: Stable Departure-Patient Inst. Referrals: NO,LOCAL PHYSICIAN (PCP/Family) Primary Care Physician Patient Instructions: Cough, Runny Nose, and the Common Cold (DC) Add. Discharge Instructions: LOTS OF CLEAR LIQUIDS TYLENOL NEEDED FOR PAIN OR FEVER OVER THE COUNTER MEDICATIONS FOR COUGH AND CONGESTION FOLLOW UP WITH [facility] IN 4-5 DAYS IF NO BETTER All discharge instructions reviewed with patient and/or family. Voiced understanding. VAMSHI RODRIGUEZ DO Jul 24, 2019 22:37
[2019-07-24 23:00] VITALS: BP 137/74
--- NOTE | 2019-07-25 07:03 | Diagnostic Imaging Report ---
INDICATION: Cough and congestion COMPARISON: 02/08/2019 TECHNIQUE: Single radiograph the chest dated 07/24/2019. FINDINGS: The cardiac silhouette and pulmonary vasculature are within normal limits. The lungs are clear. No pleural effusion. No pneumothorax. No acute osseous abnormality. IMPRESSION: No acute cardiopulmonary abnormality. Dictated by: Dictated on workstation # [id number]
== END 2019-07-24 23:00 | disposition home or self-care (01) ==
LOC: EDUNIT# 21:35 → ER 21:37
DX: R06.09 Other forms of dyspnea (principal); R05 Cough; F17.210 Nicotine dependence, cigarettes, uncomplicated
CPT/HCPCS: 36415; 71045; 80053; 82728; 83615; 83735; 84145; 85025; 85379; 85652; 86141; 86308; 87430; 87804

== ENCOUNTER 2020-11-09 11:43 | Emergency (ER) | payer MEDICAID ==
[~2020-11-09] VITALS: Ht 177 cm; Wt 75.0 kg
[2020-11-09] MEDS ORDERED: [UNRECOGNIZED DRUG - CODE] RC (13:51)
[2020-11-09] MEDS ORDERED: DOCU-143 PO (13:51)
[2020-11-09] MEDS ORDERED: ACHD5005 PO (13:51)
[2020-11-09] MEDS ORDERED: PSYL0.525 PO (13:51)
--- NOTE | 2020-11-09 13:52 | ED GI ---
General Chief Complaint: Rect Problems Stated Complaint: RECTAL PAIN Source of Information: Patient Exam Limitations: No Limitations History of Present Illness Date Seen by Provider: Nov 09, 2020 Time Seen by Provider: 13:46 Initial Comments To ER with a large right sided hemorrhoid onset a few hours ago. He has had a history of hemorrhoids off and on but they usually go away with conservative treatment including witch melissa and warm soaks. Timing/Duration: 1-2 Days Severity/Quality: Moderate Radiation: No Radiation Activities at Onset: None Associated Symptoms: Denies Symptoms Allergies and Home Medications Allergies Coded Allergies: No Known Drug Allergies (Unverified , 11/15/18) Home Medications Azithromycin 250 Mg Tablet, 250 MG PO UD TAKE 2 TABLETS ON DAY ONE THEN TAKE 1 TABLET DAILY FOR FOUR MORE DAYS Prescribed by: KASSANDRA BARRON on 02/08/19 190 Docusate Sodium 100 Mg Capsule, 100 MG PO BID Prescribed by: KASSANDRA BARRON on 11/09/20 135 Hydrocodone/Acetaminophen 1 Each Tablet, 1 TAB PO Q4H PRN for PAIN-SEVERE (8-10) Prescribed by: KASSANDRA BARRON on 11/09/20 135 Hydrocortisone/Lidocaine/Aloe 100 Gm Gel.w.appl, 2 GM RC TID Prescribed by: KASSANDRA BARRON on 11/09/20 135 Prednisone 20 Mg Tab, 40 MG PO DAILY Prescribed by: KASSANDRA BARRON on 02/08/19 1900 Psyllium Husk 0.52 Gm Capsule, 0.52 GM PO BID Prescribed by: KASSANDRA BARRON on 11/09/20 135 Patient Home Medication List Home Medication List Reviewed: Yes Review of Systems Review of Systems Constitutional: see HPI EENTM: No Symptoms Reported Respiratory: No Symptoms Reported Cardiovascular: No Symptoms Reported Gastrointestinal: See HPI Genitourinary: No Symptoms Reported Musculoskeletal: no symptoms reported Skin: no symptoms reported Psychiatric/Neurological: No Symptoms Reported Endocrine: No Symptoms Reported Hematologic/Lymphatic: No Symptoms Reported Past Ilamhww-Yniadv-Nulmaf Hx Immunizations Up To Date Tetanus Booster (TDap): Unknown Seasonal Allergies Seasonal Allergies: No Past Medical History Surgeries: No Respiratory: No Cardiac: No Neurological: No Genitourinary: No Gastrointestinal: No Musculoskeletal: No Endocrine: No HEENT: No Cancer: No Psychosocial: No Integumentary: No Blood Disorders: No Physical Exam Vital Signs Vital Signs - First Documented 7/17/21 12:11 Temp 35.3 Pulse 62 Resp 18 B/P (MAP) 129/79 (96) Pulse Ox 100 O2 Delivery Room Air Capillary Refill : Height/Weight/BMI Height: 5'10.00" Weight: 140lbs. oz. 63.110289sr; 22.00 BMI Method:Stated General Appearance: WD/WN, no apparent distress Respiratory: no respiratory distress, no accessory muscle use Gastrointestinal: normal bowel sounds, non tender, soft Rectal: other (There is a large acutely thrombosed external hemorrhoid on the right side. ) Extremities: normal range of motion, non-tender Neurologic/Psychiatric: alert, normal mood/affect, oriented x 3 Skin: normal color, warm/dry Progress/Results/Core Measures Results/Orders Vital Signs/I&O 11/09/20 11/09/20 12:11 14:13 Temp 35.3 Pulse 62 0 Resp 18 0 B/P (MAP) 129/79 (96) 0/0 Pulse Ox 100 0 O2 Delivery Room Air Departure Communication (Admissions) I did offer him excision of acutely thrombosed external hemorrhoid and discussed that if this is to be done it should be done within 48 to 72 hours of symptom onset. At this time he is not interested in that and would prefer a more conservative approach with topical analgesics. Impression Primary Impression: Hemorrhoids Disposition: 01 HOME, SELF-CARE Condition: Stable Departure-Patient Inst. Decision time for Depature: 13:48 Referrals: [facility] (PCP/Family) Primary Care Physician TERA DAS BRETT D DO KIDO, TAKAAKI MD Patient Instructions: Hemorrhoids (DC) Add. Discharge Instructions: 1. Increase water intake and increase your fiber intake. These 2 things will help to soften your stools so that you do not strain and make it less likely to develop recurrent hemorrhoids. Take the stool softener as directed. Apply the pain medication topically 3 times a day. If symptoms persist then call one of the surgeons listed to make an appointment to be seen. Return to ER for any worsening. Do not be alarmed if you notice some blood in your toilet paper within the next few days. Pain should subside within the next few days. All discharge instructions reviewed with patient and/or family. Voiced understanding. Scripts Psyllium Husk (Psyllium Fiber) 0.52 Gm Capsule 0.52 GM PO BID, #20 CAP Prov: KASSANDRA BARRON APRN 11/09/20 Docusate Sodium (Colace) 100 Mg Capsule 100 MG PO BID, #14 CAP Prov: KASSANDRA BARRON APRN 11/09/20 Hydrocodone/Acetaminophen (Hydrocodone-Acetamin 5-325 mg) 1 Each Tablet 1 TAB PO Q4H PRN for PAIN-SEVERE (8-10), #10 TAB Prov: KASSANDRA BARRON APRN 11/09/20 Hydrocortisone/Lidocaine/Aloe (Lidocaine-Hc 2.8-0.55% Gel) 100 Gm Gel.w.appl 2 GM RC TID, #1 TUBE Prov: KASSANDRA BARRON APRN 11/09/20 Work/School Note: Work Release Form Date Seen in the Emergency Department: Nov 09, 2020 Return to Work: Nov 12, 2020 KASSANDRA BARRON APRN Nov 09, 2020 13:52
[2020-11-09 14:13] VITALS: BP 0/0
== END 2020-11-09 14:13 | disposition home or self-care (01) ==
LOC: EDUNIT# 11:43 → ER 11:47
DX: K64.9 Unspecified hemorrhoids (principal); Z79.52 Long term (current) use of systemic steroids
CPT/HCPCS: 99282